=== PATIENT | female | born 1985 | race Two or more races ===

== ENCOUNTER 2023-04-24 01:32 | Emergency (ER) | payer OTHER ==
[2023-04-24 01:38] VITALS: BP 127/75; PULSE 90; RESP 18; TEMP 98; BMI 26.9
[2023-04-24] MEDS ORDERED: METOCLOPRAMIDE HCL INJECTION 10 MG/2 ML VIAL IVPUSH ONE (01:52)
[2023-04-24] MEDS ORDERED: SODIUM CHLORIDE 0.9% 500 ML INFUS.BAG IV ONE (01:52)
[2023-04-24] MEDS ORDERED: ACETAMINOPHEN 1000 MG/100 ML BAG IVPB ONE (02:10)
[2023-04-24] MEDS ORDERED: FAMOTIDINE 20 MG/50 ML IVPB 20 MG/50 ML MG IVPB ONE ×2 (02:10→02:23)
[2023-04-24] MEDS ORDERED: METOCLOPRAMIDE HCL INJECTION 10 MG/2 ML VIAL ONE (02:15)
[2023-04-24 02:20] LABS: BASO % 0.9 % (0-2.0); HEMATOCRIT 36.6 % (32.4-45.2); HEMOGLOBIN 12.5 GM/dL (10.7-15.3); LYMPH % 31.5 % (8-40); MCH 28.7 pg (25.7-33.7); MCHC 34.1 g/dl (32.0-36.0); MEAN CELL VOLUME 84.3 fl (80-96); MEAN PLT VOLUME 7.9 fl (7.5-11.1); MONO % 5.5 % (3.8-10.2); NEUT % 61.1 % (42.8-82.8); PLATELET COUNT 277 10^3/uL (134-434); RBC 4.35 M/mm3 (3.60-5.2); RDW 14.1 % (11.6-15.6); WHITE BLOOD COUNT 10.1 K/mm3 (4.0-10.0)
[2023-04-24] MEDS ORDERED: ACETAMINOPHEN INJECTION 100 ML IVPB ONE (02:23)
[2023-04-24 02:42] LABS: CHLORIDE 105 mmol/L (98-107); SODIUM 135 mmol/L (136-145)
[2023-04-24 02:44] LABS: CALCIUM 8.7 mg/dL (8.5-10.1)
[2023-04-24 02:45] LABS: ALBUMIN 3.6 g/dl (3.4-5.0); BLOOD UREA NITROGEN 11.2 mg/dL (7-18); CO2 24 mmol/L (21-32); GLUCOSE,RANDOM 236 mg/dL (74-106); LIPASE 54 U/L (73-393); MAGNESIUM 1.9 mg/dL (1.8-2.4)
[2023-04-24 02:48] LABS: CREATININE 0.9 mg/dL (0.55-1.3); SGPT/ALT 20 U/L (13-61)
[2023-04-24 02:50] LABS: BILIRUBIN,TOTAL 0.3 mg/dL (0.2-1); TOT PROT 7.5 g/dl (6.4-8.2)
[2023-04-24 02:51] LABS: ALK PHOS 64 U/L (45-117)
[2023-04-24 03:23] LABS: ANION GAP 7 MMOL/L (8-16); POTASSIUM 6.4 mmol/L (3.5-5.1); SGOT/AST 40 U/L (15-37)
== END 2023-04-24 04:47 | disposition home or self-care (01) ==
LOC: JER 01:32
PROC: 3E033GC Introduction of Other Therapeutic Substance into Peripheral Vein, Percutaneous Approach (ICD-10-PCS; principal; 2023-04-24)
PROC: 3E033GC Introduction of Other Therapeutic Substance into Peripheral Vein, Percutaneous Approach (ICD-10-PCS; 2023-04-24)
PROC: 3E033GC Introduction of Other Therapeutic Substance into Peripheral Vein, Percutaneous Approach (ICD-10-PCS; 2023-04-24)
DX: R42 Dizziness and giddiness (principal); R11.10 Vomiting, unspecified; T50.905A Adverse effect of unspecified drugs, medicaments and biological substances, initial encounter
CPT/HCPCS: 36415; 80053; 83690; 83735; 84132; 85025; 93005; 93010; 99284-25